=== PATIENT | female | born 2005 | race Caucasian/White ===

== ENCOUNTER 2025-04-18 13:30 | Outpatient (CLI) | payer BC, SELFPAY | END 2025-04-18 13:31 | disposition home or self-care (01) | PROVIDERS: PCP Nurse Practitioner Family; Visit Provider Nurse Practitioner Family | DX: N93.9 Abnormal uterine and vaginal bleeding, unspecified (principal); R10.20 Pelvic and perineal pain unspecified side | CPT/HCPCS: 84443; 85025; 87491; 87591 ==